=== PATIENT | female | born 1960 | race Caucasian/White ===

== ENCOUNTER → 2018-07-04 | Outpatient (CLI) | payer OTHER ==
[~2018-07-04] MED LIST: AMLO10 PO; HYDCHL25 PO; LISI20 PO; MECL25 PO; METF500 PO; METF500C PO; METO25ER PO; NORT10 PO; ONDA8 PO; PRAV10 PO; PRAV20 PO; SITA100T2 PO; VALS80 PO
== END ==
LOC: LAB SHORT 17:50 → LAB 17:50
DX: R19.7 Diarrhea, unspecified (principal)
CPT/HCPCS: 87015; 87045; 87046; 87205; 87899

== ENCOUNTER 2019-03-06 23:27 | Inpatient (IN) | payer OTHER ==
[~2019-03-06] VITALS: Ht 162.6 cm; Wt 111.1 kg
[2019-03-07 03:05] LABS: Blood, Urine 2+ (Neg); Glucose Qualitative, Urine 3+ (Neg); Ketones, Urine 1+ (Neg); Leukocyte Esterase, Urine 1+ (Neg); Nitrite, Urine Neg (Neg); Protein, Urine 1+ (Neg); Specific Gravity, Urine 1.015 (1.003-1.022); Urobilinogen, Urine 1+ (Normal)
[2019-03-07 03:05] LABS: BASOPHILS ABSOLUTE AUTO 0.03 K/mm3 (0.00-0.23); BASOPHILS PERCENT AUTO 0 % (0-2); EOSINOPHILS ABSOLUTE AUTO 0.01 K/mm3 (0.00-0.68); EOSINOPHILS PERCENT AUTO 0 % (0-6); Hematocrit 38.3 % (33.0-51.0); IMMATURE GRAN ABSOLUTE AUTO 0.05 K/mm3 (0.00-0.10); IMMATURE GRAN PERCENT AUTO 0 % (0-1); LYMPHOCYTES ABSOLUTE AUTO 0.97 K/mm3 (0.84-5.20); LYMPHOCYTES PERCENT AUTO 9 % (21-46); MONOCYTES ABSOLUTE AUTO 0.93 K/mm3 (0.16-1.47); MONOCYTES PERCENT AUTO 8 % (4-13); Mean Corpuscular HGB 29.5 pg (26.0-34.0); Mean Corpuscular HGB Conc 33.9 g/dL (31.5-36.5); Mean Corpuscular Volume 87 fL (80-100); Mean Platelet Volume 9.7 fL (9.1-12.4); NEUTROPHILS ABSOLUTE AUTO 9.23 K/mm3 (1.96-9.15); NEUTROPHILS PERCENT AUTO 82 % (41-73); Platelet Count 258 K/mm3 (150-400); RDW Coefficient Variation 12.9 % (11.7-14.2); RDW Standard Deviation 41.1 fL (35.1-46.3); Red Blood Cell Count 4.41 M/mm3 (3.80-5.20); White Blood Cell Count 11.22 K/mm3 (4.00-11.30)
[2019-03-07] MEDS ORDERED: SIMV10 PO (03:07)
[2019-03-07] MEDS ORDERED: QUET25 PO (03:07)
[2019-03-07] MEDS ORDERED: LOSA50 PO (03:08)
[2019-03-07] MEDS ORDERED: CHLO25B PO (03:09)
[2019-03-07 03:10] LABS: Appearance, Urine Hazy (Clear); Bilirubin, Urine 1+ (Neg); Color, Urine Yellow (P-Yellow)
[2019-03-07 03:11] LABS: Amorphous Light (0-Heavy); Bacteria Few /hpf; Mucus Light (0-Heavy); Red Blood Cells, Urine 0-2 /hpf (0-2); Squamous Epithelial Cells Few /hpf (Few)
[2019-03-07 03:12] LABS: Granular Casts 0-2 /lpf (0)
[2019-03-07 03:23] LABS: Albumin/Globulin Ratio 0.8 (0.8-1.8); Bilirubin, Total 0.5 mg/dL (0.1-1.0); Calcium, Blood 9.4 mg/dL (8.5-10.1); Creatinine, Blood 1.94 mg/dL (0.40-1.00); Globulin, Blood 3.6 g/dL (2.2-4.0); Total Protein, Blood 6.6 g/dL (6.4-8.2)
[2019-03-07 03:47] LABS: Magnesium, Blood 1.8 mg/dL (1.6-2.4); Troponin I 0.064 ng/mL (0.000-0.040)
[2019-03-07 09:37] LABS: U Amphetamine Screen Not Detected; U Barbituate Screen Not Detected; U Benzodiazapine Screen Not Detected; U Buprenorphine Screen Not Detected; U Cannabinoids Screen Not Detected; U Cocaine Screen Not Detected; U Methadone Screen Not Detected; U Methamphetamine Screen Not Detected; U Opiates Screen Not Detected; U Oxycodone Screen Not Detected; U Phencyclidine Screen Not Detected; U Propoxyphene Screen Not Detected
[2019-03-07] MEDS ORDERED: ASPI325EC PO (16:14)
[2019-03-07] MEDS ORDERED: METO25ER PO (16:14)
--- NOTE | 2019-03-07 16:18 | NUR ---
ADMIT REPORT RECEIVED FROM DALIA TURNER. PT ARRIVED VIA GURNEY ACCOMPANIED BY SPOUCE. PT MORE AWAKE AND ALERT. ASKING SIMPLE QUESTIONS. MAKING SIMPLE REQUESTS. VOICE WEAK AND QUIET. VSS. CALL LIGHT WITH IN REACH. FAMILY WENT HOME TO GET SOME REST. CONTINUE POT.
--- NOTE | 2019-03-07 18:29 | NUR ---
NOTE PT AWAKE AND ALERT. LIMITED ROM. NO ATTEMPT TO MOVE HERSELF. SHE IS HOLDING THE CALL LIGHT. PT EATING DINNER, PUREE, WITH EATING ASSIST. NO ATTEMPT TO FEED HERSELF. INCONTINET OF STOOL X1. DARK, BROWN. MILD ODOR. NO MUCIOUS. RENÉ AREA SKIN CD&I. ORANGE CREAM APPLIED TO RENÉ AREA FOR SKIN PROTECTION. CONTINUE POT.
[2019-03-08 00:43] LABS: Adenovirus F 40/41 Not Detected (NOT DETECT); Astrovirus Not Detected (NOT DETECT); Campylobacter Sp Not Detected (NOT DETECT); Cryptosporidium Not Detected (NOT DETECT); Cyclospora Cayetanensis Not Detected (NOT DETECT); E. Coli O157 Not Detected (NOT DETECT); Entamoeba Histolytica Not Detected (NOT DETECT); Enteroaggregative E. coli-EAEC Not Detected (NOT DETECT); Enteropathogenic E. coli-EPEC Not Detected (NOT DETECT); Enterotoxigenic E. coli-ETEC Not Detected (NOT DETECT); Giardia Lamblia Not Detected (NOT DETECT); Norovirus GI/GII Not Detected (NOT DETECT); Plesiomonas Shigelloides Not Detected (NOT DETECT); Rotavirus A Not Detected (NOT DETECT); Salmonella Sp Not Detected (NOT DETECT); Sapovirus Not Detected (NOT DETECT); Shiga Toxin-prod E. coli-STEC Not Detected (NOT DETECT); Shigella/Enteroin E. coli-EIEC Not Detected (NOT DETECT); Vibrio Cholerae Not Detected (NOT DETECT); Vibrio Sp Not Detected (NOT DETECT); Yersinia Enterocolitica Not Detected (NOT DETECT)
--- NOTE | 2019-03-08 01:17 | NUR ---
responds slowly to verbal stimulus, loose stool, aware of surroundings but not seeming to want to engage, call light in reach, saline locked, room air, will continue to assist, administer and assess
[2019-03-08 04:21] LABS: Hematocrit 36.2 % (33.0-51.0); Mean Corpuscular HGB 29.3 pg (26.0-34.0); Mean Corpuscular HGB Conc 33.1 g/dL (31.5-36.5); Mean Corpuscular Volume 89 fL (80-100); Platelet Count 207 K/mm3 (150-400); RDW Coefficient Variation 13.1 % (11.7-14.2); RDW Standard Deviation 42.1 fL (35.1-46.3); Red Blood Cell Count 4.09 M/mm3 (3.80-5.20); White Blood Cell Count 11.23 K/mm3 (4.00-11.30)
[2019-03-08 04:46] LABS: Alanine Aminotransfer (ALT/SGP 52 U/L (12-78); Albumin, Blood 2.3 g/dL (3.4-5.0); Albumin/Globulin Ratio 0.7 (0.8-1.8); Alk Phos 85 U/L (50-136); Anion Gap 8 mmol/L (6-16); Aspartate Aminotrans (AST/SGOT 101 U/L (12-37); Bilirubin, Total 0.5 mg/dL (0.1-1.0); Blood Urea Nitrogen 21 mg/dL (8-24); Bun/Creatinine Ratio 23.3 (12.0-20.0); CO2, Blood 24 mmol/L (21-32); Calcium, Blood 8.1 mg/dL (8.5-10.1); Chloride, Blood 108 mmol/L (98-108); Globulin, Blood 3.2 g/dL (2.2-4.0); Glomerular Filtration Rate >60 (60-); Glucose, Blood 142 mg/dL (70-99); Sodium, Blood 140 mmol/L (136-145); Total Protein, Blood 5.5 g/dL (6.4-8.2)
--- NOTE | 2019-03-08 07:18 | NUR ---
alert at base line, slow to respond, needed assistance with all adl's, call light in hand, saline locked, room air, walking rounds completed with day staff
--- NOTE | 2019-03-08 14:56 | NUR ---
Patient was lying in bed with , Uday, bedside. Patient only responded in one or two word sentences but slept through most of the visit. Uday, however was in a crisis of dalila. I spent quit a bit of time hearing his struggles and answering his questions according to his own belief system. Uday responded well and allowed me to pray for him. He displayed evidence of restored dalila and catharsis. Patient expressed gratitude for the visit.
--- NOTE | 2019-03-08 18:38 | NUR ---
SHIFT SUMMARY. A&OX1, SLOW TO RESPOND. PHYSICAL THERAPY WORKED WITH PT TODAY, PT IS A LIFT PT, UNABLE TO BARE OWN WEIGHT. ALL EXTREMITIES RIGID, FEET BEGINING TO DROP. PT SY NOT APPEAR PAINFUL, DENIED PAIN. NO SOB OR DISTRESS. NO N/V. GOOD PO INTAKE. AT BEDSIDE MOST OF THE SHIFT, REQUEST TO ASSIST WITH CARE OFTEN. APPEARS TO HAVE CAREGIVER STRAIN AND FATIGUE, HE WAS ENCOURAGED TO GO HOME TONIGHT AND GET A GOOD NIGHT SLEEP. PT RECIEVED NEW IV TODAY, STARTED ON MAINTENENCE FLUIDS AND PO VANCO TODAY. 6 INCONTINENT LOOSE BROWN BM'S THIS SHIFT. PT RECIEVED BED BATH THIS AM. PT HAS BEEN CONTINENT OF URINE.
--- NOTE | 2019-03-08 18:51 | NUR ---
LATE ENRTY. PT IS NOW MEDICAL FLOOR STATUS WITHOUT TELE.
--- NOTE | 2019-03-08 19:46 | NUR ---
AWAKE FRANTZ SPOKEN TO TRIES TO SAY NAME OF STAFF AND UNABLE. SAYS HER NAME AND DATE OF . CONJUGATE EYE MOVEMENT AND EYE TRACKING WNL. PER COMMAND. HAND SQUEEZE TO COMMAND. UNABLE TO LIFT ARMS. WEAK BUT FOLLOWS COMMAND WITH LOWER EXT NEURO CHECK. REID 2/2..BENDS BOTH KNEES REQUEST. VERY LETHARGIC AND SPEAKS SOFTLY. REPORTS SOME PAIN IN NECK AND SHOULDERS. WILL TRY REPOSITION.
[2019-03-09 04:13] LABS: BASOPHILS ABSOLUTE AUTO 0.04 K/mm3 (0.00-0.23); BASOPHILS PERCENT AUTO 0 % (0-2); EOSINOPHILS ABSOLUTE AUTO 0.07 K/mm3 (0.00-0.68); EOSINOPHILS PERCENT AUTO 1 % (0-6); Hematocrit 35.8 % (33.0-51.0); Hemoglobin 11.9 g/dL (11.5-16.0); IMMATURE GRAN ABSOLUTE AUTO 0.13 K/mm3 (0.00-0.10); IMMATURE GRAN PERCENT AUTO 1 % (0-1); LYMPHOCYTES ABSOLUTE AUTO 1.21 K/mm3 (0.84-5.20); LYMPHOCYTES PERCENT AUTO 10 % (21-46); MONOCYTES ABSOLUTE AUTO 0.65 K/mm3 (0.16-1.47); MONOCYTES PERCENT AUTO 5 % (4-13); Mean Corpuscular HGB 29.5 pg (26.0-34.0); Mean Corpuscular HGB Conc 33.2 g/dL (31.5-36.5); Mean Corpuscular Volume 89 fL (80-100); Mean Platelet Volume 9.8 fL (9.1-12.4); NEUTROPHILS PERCENT AUTO 83 % (41-73); Platelet Count 237 K/mm3 (150-400); RDW Standard Deviation 41.8 fL (35.1-46.3); Red Blood Cell Count 4.04 M/mm3 (3.80-5.20)
[2019-03-09 04:32] LABS: Albumin, Blood 2.4 g/dL (3.4-5.0); Anion Gap 6 mmol/L (6-16); Blood Urea Nitrogen 13 mg/dL (8-24); Bun/Creatinine Ratio 15.2 (12.0-20.0); CO2, Blood 26 mmol/L (21-32); Calcium, Blood 8.1 mg/dL (8.5-10.1); Chloride, Blood 106 mmol/L (98-108); Creatinine, Blood 0.85 mg/dL (0.40-1.00); Glomerular Filtration Rate >60 (60-); Glucose, Blood 206 mg/dL (70-99); Magnesium, Blood 1.7 mg/dL (1.6-2.4); Potassium, Blood 3.3 mmol/L (3.5-5.5); Sodium, Blood 138 mmol/L (136-145)
--- NOTE | 2019-03-09 05:18 | NUR ---
SHIFT SUMMARY. FEW WORDS TO VOICE NEEDS SLOW AND WHISPERS. ASKED FOR BED GALICIA AND KNEW WHEN ATTENDS SOILED. DID NOT KNOW HOW TO USE CALL LITE BUT STAFF FREQ CHECKS ACCOMPLISHES ALL NEEDS QUICKLY. ONLY TOUCHES FACE W/ HANDS BUT VERY LITTLE SPONTANIOUS DESIRE TO MOVE . NO ACUTE ISSUES AND AGREED TO STAFF FEEDING HER ONE PUDDING . TAKES PILLS WELL AND SIPS ON H2O W/ ASPIRATION PRECAUTIONS.RENÉ AREA W/O SKIN BREAKDOWN UNGT APPLIED FOR PROTECTION
--- NOTE | 2019-03-09 10:08 | NUR ---
pt laying in bed, spouce at bedside, she is awake, speaks to spouce, slowly asnswers some questions. a/o to herself, and place, lungs are clear t/o, resp even and unlabored, no cough noted, hrr, attempts to cooperate and follow commands, but is very slow. no edema noted, ppp+1, cap refill <3sec, vs stable, afebrile, iv site is clear and patent, but feels like it is burning, have asked charge nurse to place another line as there is no visible veins, btx4, abd flat soft nontender, incont and uses the bed denny at times. spouce is helpful with care, she is bedrest at this time, very weak, in contact iso for cdiff, takes her po meds without diff, and a puree diet.
--- NOTE | 2019-03-09 11:02 | NUR ---
called Dr. Gibson office to request medical records, office was not answering at this time, did leave a msg with fax number for them to fax medical records. she will be transfered to medical floor at this time, report was given to Hailey TURNER. pt will transfer via bed, informed her and spouce.
--- NOTE | 2019-03-09 13:13 | NUR ---
HANDOFF RECEIVED HANDOFF REPORT RECEIVED FROM NURSE BRENDA GUTIERREZ IN PCU. PT IN ISO FOR CDIFF. PT S/SX: UNRESPONSIVE. FAMILY STATED THAT SHE IS OFTEN UNRESPONSIVE. PT ON PUREE DIET. SHE IS PLEASANTLY CONFUSED W/ A HISTORY OF LEWY BODY DEMENTIA, DM 2, HTN, NEUROPATHY. SHE IS BEDRIDDEN WITH ATTENDS. DNR CODE. ROOM AIR. A&O TO SELF AND SPOUSE ONLY
--- NOTE | 2019-03-09 18:20 | NUR ---
SHIFT SUMMARY 58 YEAR OLD FEMALE ADMITTED FOR UNRESPONSIVENESS. DNR. IN CONTACT PRECAUTIONS FOR CDIFF. BEDRIDDEN - NEW ONSET (COULD HELP TRANSFER SELF TO WHEELCHAIR AT HOME), USES ATTENDS/BEDPAN. ROOM AIR. A&O TO SELF AND SPOUSE ONLY. HER DIET IS MECH/SOFT GROUND MEAT. ACHS W/INSULIN COVERAGE. EXTREMETIES ARE STIFF. SHE IS PLEASANTLY CONFUSED. HX:LEWY BODY DEMENTIA, DM 2, HTN, NEUROPATHY. REQUESTED PT RECORDS FROM NEUROLOGIST DR. PRATT IN [place]. RECORDS FAXED AND IN FRONT OF CHART. LOVENOX FOR DVT PREVENTION. TRANSFERED TO MED FLOOR FROM PCU TODAY.
--- NOTE | 2019-03-10 04:01 | NUR ---
SHIFT SUMMARY PATIENT HAD NO ACUTE CHANGES OBSERVED THIS SHIFT. SLOW TO RESPOND. AXO TO SELF/SPOUSE. BEDFAST. REFUSED MOST PO MEDICATION. ORAL VANCO GIVEN PER EMAR. CONTACT PRECAUTIONS. CBG 151;AC/HS. HX LEWY BODY DEMENTIA. PIV REMAINS INTACT. KCL 20 MEQ INFUSING AT 75mL/HR. VSS/AFEBRILE. DENIES PAIN, SOB, AND N/V. CALL LIGHT IN REACH. BED IN LOWEST POSITION. WILL CONTINUE TO MONITOR UNTIL DAY SHIFT NURSE ASSUMES CARE.
[2019-03-10 06:04] LABS: Alanine Aminotransfer (ALT/SGP 53 U/L (12-78); Albumin, Blood 2.3 g/dL (3.4-5.0); Albumin/Globulin Ratio 0.7 (0.8-1.8); Alk Phos 96 U/L (50-136); Anion Gap 10 mmol/L (6-16); Aspartate Aminotrans (AST/SGOT 54 U/L (12-37); Bilirubin, Direct 0.1 mg/dL (0.0-0.3); Bilirubin, Indirect 0.4 mg/dL (0.1-0.7); Bilirubin, Total 0.5 mg/dL (0.1-1.0); Blood Urea Nitrogen 8 mg/dL (8-24); Bun/Creatinine Ratio 11.5 (12.0-20.0); CO2, Blood 23 mmol/L (21-32); Calcium, Blood 8.1 mg/dL (8.5-10.1); Chloride, Blood 103 mmol/L (98-108); Creatinine, Blood 0.69 mg/dL (0.40-1.00); Globulin, Blood 3.5 g/dL (2.2-4.0); Glomerular Filtration Rate >60 (60-); Glucose, Blood 164 mg/dL (70-99); Phosphorus, Blood 2.2 mg/dL (2.5-4.9); Potassium, Blood 3.3 mmol/L (3.5-5.5); Sodium, Blood 136 mmol/L (136-145); Total Protein, Blood 5.8 g/dL (6.4-8.2)
--- NOTE | 2019-03-10 17:32 | NUR ---
SHIFT SUMMARY- PT SLEEPY BUT AWAKES TO VERBAL STIMULI, MINIMAL VERBALIZATION TO STAFF BUT DOES TALK WITH SPOUSE. PT DENIES ANY COMPLAINTS. PT UP TO CHAIR WITH PHYSICAL THERAPY, SPOUSE ASSISTED BACK INTO BED WITH RN STUDENT ON STAND BY, SPOUSE REPORTS HE IS UNSURE HOW HE WILL DO THIS AT HOME AND STATES HE WONT TRY IT AGAIN, PT IS RECOMMENDED BY THERAPY TO BE A LIFT. PT A HEAVY 2-3 PERSON TURN. PT INCONT OF URINE AND STOOL, 1 LOOSE STOOL THIS SHIFT. POSS D/C HOME TOMORROW WITH SPOUSE. NO OTHER ACUTE CHANGES THIS SHIFT.
--- NOTE | 2019-03-10 18:25 | NUR ---
SHIFT SUMMARY PT IS ON ISOLATION WITH C-DIFF. PT HAD TWO BOWEL MOVMENTS. PT MOVED TO CHAIR WITH PHYSICAL THERAPY, SHE REMAINED IN THE CHAIR FOR ABOUT 30 MINUTES. I ASSISTED THE TO MOVE THE PATIENT BACK TO BED. SHE HAS A DIFFICULT TIME TRANSFERING AND WE PLAN TO MOVE HER TO A ROOM WITH A LIFT. SHE NEEDS ASSISTANCE EATING AND ATE ALMOST ALL OF HER MEALS. SHE STATED THAT THE IV SITE WAS UNCOMFORTABLE, ENCOURAGED ORAL INTAKE OF FLUIDS. SHE HAS DIFFICULTY PRESSING THE CALL LIGHT AND IS VERY QUIET WHEN SPEAKING, AND WAS ANXIOUS ABOUT HER LEAVING FOR THE DAY. HER IS HER PRIMARY SHELTER MONITOR AND WAS AT BEDSIDE MOST OF THE DAY.
--- NOTE | 2019-03-10 18:33 | NUR ---
Initial Visit: Palliative Care Consult for Advanced Care Planning and Symptom Management. Pt is A&O to self and . She is lethargic and keeps her eyes closed for much of the visit. Pt appears comfortable with a PAINAD score of 0/10. Pt's Uday and Pt's brother is present during visit. Engaged in therapeutic conversaton regarding advanced care planning and goals of care. Uday reports that Pt does not practice a particular denomination and states they have a personal relationship with Can and God. Pt lives at home with Uday who is the primary complex care nurse practitioner for Pt. Pt's brother lives with them as well. Brother works and is unable to assist with care but does help by running errands and shopping. Uday explains the difficulty of caring for Pt and the decline the Pt has experienced recently. Uday reports that he has difficulty repositioning Pt when turning her routinely. He is currently receiving disability benefits. Listened as Uday expressed concerns of Pt needing around the clock care and little sleep he gets. Pt requires considerable assistance with dressing, bathing, is a mechanical lift for transfers and is not able to ambulate. Pt is also currently incontinent. Uday also reports Pt requires 2 people to roll to provide care. Uday reports Pt experiences occasional difficulty swallowing as evidence by occasional coughing when drinking. Uday reports 2 weeks ago Pt was able to stand and ambulate with the use of a walker and assistance of another person. Pt was also continent. Discussed options for care including in home caregivers and nursing homes. Uday reports that he is willing to start the medicaid process and prefers in home caregivers. Educated Uday of disease process and trajectory of disease. Encouraged Uday to have routine conversations regarding Pt's disease with PCP to plan accordingly. Discussed with Uday that at some point end of life care may need to be considered including hospice services. Uday verbalized understanding. No other concerns reported at this time. Spoke with Pt's nurse Rudy and she expresses concerns of ability of Pt's to care for Pt. Scores below are based off Pt's current condition and are not her baseline. PPS 30% Karnofsky 40% FAST 7D ADLs 6/6 Pt appears appropriate for hospice if decline continues. Plan: Pt's is agreeable to start medicaid process to obtain in home caregivers. Will remain available.
--- NOTE | 2019-03-11 05:31 | NUR ---
*SHIFT SUMMARY* PATIENT IS ALERT AND ORIENTED TO SELF AND FAMILY. PT IS A HEAVY TWO ASSIST TURN AND LIFT TO GET OUT OF BED. PATIENT HAD ONE BOWEL MOVEMENT THROUGHOUT THE NIGHT. PT'S IV WAS NOTED TO BE INFILTRATED. NEW ORDER FOR NO IV ACCESS NEEDED. PATIENT VERBALLY STATED NUMEROUS TIMES SHE DID NOT WANT ANOTHER IV PLACED. TELEPHONE ORDER RECIEVED TO CHANGE IV POTASSIUM TO ORAL. VITALS STABLE. NO NEW CHANGES THROUGHOUT NIGHT.
[2019-03-11 09:06] LABS: Albumin, Blood 2.2 g/dL (3.4-5.0); Anion Gap 6 mmol/L (6-16); Blood Urea Nitrogen 7 mg/dL (8-24); Bun/Creatinine Ratio 10.5 (12.0-20.0); CO2, Blood 27 mmol/L (21-32); Chloride, Blood 103 mmol/L (98-108); Creatinine, Blood 0.67 mg/dL (0.40-1.00); Glomerular Filtration Rate >60 (60-); Glucose, Blood 168 mg/dL (70-99); Phosphorus, Blood 2.7 mg/dL (2.5-4.9); Potassium, Blood 3.8 mmol/L (3.5-5.5); Sodium, Blood 136 mmol/L (136-145)
--- NOTE | 2019-03-11 17:47 | NUR ---
SHIFT SUMMARY- PT A/O TO SELF AND FAMILY ONLY. PT MEDICATED X1 WITH IBUPROFEN FOR NECK PAIN. PT WITH TWO STOOLS THIS SHIFT. PHYSICAL THERAPY ATTEMPTED TO TRANSFER PT INTO CHAIR HOWEVER PT PULLING BACK AND UNABLE TO TRANSFER, LIFT RECOMMENDED. CASE MANAGEMENT WORKING ON GETTING PT A LIFT AND HOSPITAL BED AT HOME. POSS D/C TOMORROW. SPOUSE REPORTS HE IS GOING TO START WORKING ON GETTING PT PLACED AT [facility] IN [place] FOR INTERNET MARKETING ASSISTANT PLACEMENT. NO OTHER ACUTE CHANGES THIS SHIFT.
--- NOTE | 2019-03-12 06:01 | NUR ---
*SHIFT SUMMARY* PATIENT APPEARS MORE AWAKE TODAY. USING CALL LIGHT APPROPRIATELY FOR THINGS LIKE WATER, BEING TURNED, AND USING BEDPAN. PT MOSTLY INCONTINENT THROUGHOUT THE NIGHT. PT ASKED SEVERAL TIMES WHERE HER WAS. VITAL SIGNS STABLE. NO OTHER CHANGES
[2019-03-12] MEDS ORDERED: Advil200 M1 PO (09:13)
[2019-03-12] MEDS ORDERED: SACC250C (09:14)
[2019-03-12] MEDS ORDERED: VANCOMYCIN125 MG/2.5 (09:18)
--- NOTE | 2019-03-12 10:49 | NUR ---
SPOUSE EDUCATION PT SPOUSE SHOWN HOW TO COMPLETE A BED BATH & LINEN CHANGE. PROPER BREIF APPLICATION EXPLAINED TO THE SPOUSE WELL.
--- NOTE | 2019-03-12 12:59 | NUR ---
PT DISCHARGED PT DISCAHRGED. PT IN STABLE CONDITION WITH VSS. PT SPOUSE EDUCATED ON DC INSTRUCTIONS, NEW MEDS, & FOLLOW UP APPOINTMENTS. PT SPOUSE STATES NO FURTHER NEED FOR INSTRUCTION. PT WHEELED OUT & DRIVEN HOME BY [facility]. PT TO FOLLOW UP WITH HOME HEALTH.
== END 2019-03-12 12:49 | disposition home health service (06) | DRG 371 ==
LOC: ER 23:27 → PCU 03-07 05:12 → ERHOLD 03-07 05:12 → PCU 03-07 14:07 → MEDS 03-09 11:33 → ENPENDDIS 03-12 09:23 → MEDS 03-12 12:49
PROVIDERS: Emergency Medicine; Internal Medicine; ADMIT Internal Medicine
DX: A04.72 Enterocolitis due to Clostridium difficile, not specified as recurrent (principal); G92 Toxic encephalopathy; N17.9 Acute kidney failure, unspecified; F02.81 Dementia in other diseases classified elsewhere, unspecified severity, with behavioral disturbance; Z68.41 Body mass index [BMI] 40.0-44.9, adult; E87.6 Hypokalemia; E86.0 Dehydration; E83.39 Other disorders of phosphorus metabolism; Z51.5 Encounter for palliative care; E11.40 Type 2 diabetes mellitus with diabetic neuropathy, unspecified; E78.5 Hyperlipidemia, unspecified; G20 Parkinson's disease; G31.83 Neurocognitive disorder with Lewy bodies; G47.00 Insomnia, unspecified; E66.01 Morbid (severe) obesity due to excess calories; T43.595A Adverse effect of other antipsychotics and neuroleptics, initial encounter; E11.65 Type 2 diabetes mellitus with hyperglycemia; I10 Essential (primary) hypertension
CPT/HCPCS: 36415; 51701; 70450; 71045; 80053; 80069; 81001; 82140; 82248; 82947; 83036; 83605; 83735; 84100; 84484; 85025; 85027; 87040; 87086; 87324; 87507; 92526; 92610; 93005; 93010; 96361-59; 96365-59; 96367-59; 96372-59; 97110; 97162; 97530; 99285-25; A9270-GY; J0696; J1650; J3480; J7030; J7060

== ENCOUNTER 2019-04-11 22:06 | Inpatient (IN) | payer OTHER ==
[~2019-04-11] VITALS: Ht 167.6 cm; Wt 104.8 kg
[~2019-04-11 22:06] MED LIST changes: +ASPI325EC PO; +Advil200 M1 PO; +CHLO25B PO; +LOSA50 PO; +QUET25 PO; +SACC250C; +SIMV10 PO; +VANCOMYCIN125 MG/2.5
[2019-04-11 22:18] LABS: PCO2 Arterial 29.2 mmHg (35-45); PO2 Arterial 81.3 mmHg (80-100); pH Blood Arterial 7.49 (7.35-7.45)
[2019-04-11 22:26] LABS: Source, Urine Catheter
[2019-04-11 22:28] LABS: BASOPHILS ABSOLUTE AUTO 0.08 K/mm3 (0.00-0.23); BASOPHILS PERCENT AUTO 0 % (0-2); EOSINOPHILS PERCENT AUTO 0 % (0-6); Hematocrit 37.6 % (33.0-51.0); IMMATURE GRAN ABSOLUTE AUTO 0.13 K/mm3 (0.00-0.10); IMMATURE GRAN PERCENT AUTO 1 % (0-1); LYMPHOCYTES ABSOLUTE AUTO 0.91 K/mm3 (0.84-5.20); LYMPHOCYTES PERCENT AUTO 5 % (21-46); MONOCYTES ABSOLUTE AUTO 1.91 K/mm3 (0.16-1.47); MONOCYTES PERCENT AUTO 10 % (4-13); Mean Corpuscular HGB 29.8 pg (26.0-34.0); Mean Corpuscular HGB Conc 31.9 g/dL (31.5-36.5); Mean Corpuscular Volume 93 fL (80-100); Mean Platelet Volume 10.4 fL (9.1-12.4); NEUTROPHILS ABSOLUTE AUTO 16.84 K/mm3 (1.96-9.15); NEUTROPHILS PERCENT AUTO 85 % (41-73); Platelet Count 262 K/mm3 (150-400); RDW Coefficient Variation 13.5 % (11.7-14.2); RDW Standard Deviation 46.2 fL (35.1-46.3); Red Blood Cell Count 4.03 M/mm3 (3.80-5.20); White Blood Cell Count 19.87 K/mm3 (4.00-11.30)
[2019-04-11 22:29] LABS: Blood, Urine 2+ (Neg); Glucose Qualitative, Urine Neg (Neg); Ketones, Urine 1+ (Neg); Leukocyte Esterase, Urine 2+ (Neg); Nitrite, Urine Pos (Neg); Protein, Urine 1+ (Neg); Urobilinogen, Urine 1+ (Normal)
[2019-04-11 22:34] LABS: Appearance, Urine Hazy (Clear); Bilirubin, Urine 1+ (Neg); Color, Urine Yellow (P-Yellow)
[2019-04-11 22:37] LABS: White Blood Cells, Urine 25-50 /hpf (0-5)
[2019-04-11 22:38] LABS: Bacteria Many /hpf; Red Blood Cells, Urine 0-2 /hpf (0-2); Squamous Epithelial Cells Not Seen /hpf (Few)
[2019-04-11 22:52] LABS: Albumin, Blood 2.4 g/dL (3.4-5.0); Albumin/Globulin Ratio 0.6 (0.8-1.8); Bilirubin, Total 0.8 mg/dL (0.1-1.0); Calcium, Blood 8.5 mg/dL (8.5-10.1); Creatinine, Blood 1.7 mg/dL (0.40-1.00); Globulin, Blood 3.8 g/dL (2.2-4.0); Potassium, Blood 3.4 mmol/L (3.5-5.5); Total Protein, Blood 6.2 g/dL (6.4-8.2)
[2019-04-11 22:53] LABS: Troponin I 0.03 ng/mL (0.000-0.040)
[2019-04-11 23:44] LABS: C DIFFICILE BY DNA AMP Positive (Negative)
--- NOTE | 2019-04-12 02:00 | NUR ---
RECEIVED HAND OFF FROM Korey SWANSON RN USING SBAR. TRANSPORTED TO ROOM VIA STRETCHER. TRANSFERED TO BED WITH FULL STAFF ASSISTANCE, TOLERATED WELL. A&O TO SELF AND SPOUSE ONLY. ABLE TO ANSWER SIMPLE QUESTIONS WITH ONE WORD ANSWERS. ORIENTED TO ROOM, CALL SYSTEM, AND POC, SPOUSE VERBALIZES UNDERSTANDING. NURSING CLARIFIED WITH SPOUSE REGUARGING PT'S WISHES FOR DNR STATUS. HE STATED THAT THEY WOULD WANT NO CHEST COMPRESSIONSOR INTUBATION. HE STATED THAT THEY DID WANT ANTIBIOTIC AND HYDRATION THERAPY. IF SWALLOWING BECAME AN ISSUE, HE STATED THAT THEY WOULD LIKE TO HAVE A PEG TUBE LONG HER ORGANS WERE STILL FUNCTIONING. RIGHT WRIST 20G PIV IS PATENT, NS STARTED AT 200ML/HR PER MD ORDERS FOR 2 LTRS. BUSTOS CATH IS PATENT, DRAINING CLOUDY RONN URINE TO GRAVITY. SCD'S PLACED TO BLE. ADMISSION ASSESSMENT IN PROGRESS. SAFETY MEASURES IN PLACE. WILL CONTINUE TO MONITOR.
[2019-04-12] MEDS ORDERED: Vancocin HCl125 MG PO (03:05)
[2019-04-12 04:08] LABS: Bun/Creatinine Ratio 25.2 (12.0-20.0); Calcium, Blood 8.1 mg/dL (8.5-10.1); Creatinine, Blood 1.31 mg/dL (0.40-1.00); Potassium, Blood 3.7 mmol/L (3.5-5.5)
--- NOTE | 2019-04-12 04:15 | NUR ---
1 DARK BROWN BM CLEANED. REPOSITIONED TO COMFORT. DENIES FURTHER NEEDS AT THIS TIME. SAFETY MEASURES IN PLACE. WILL CONITINUE TO MONITOR.
[2019-04-12 06:16] LABS: BASOPHILS ABSOLUTE AUTO 0.05 K/mm3 (0.00-0.23); BASOPHILS PERCENT AUTO 0 % (0-2); EOSINOPHILS PERCENT AUTO 0 % (0-6); Hemoglobin 12.3 g/dL (11.5-16.0); IMMATURE GRAN ABSOLUTE AUTO 0.16 K/mm3 (0.00-0.10); IMMATURE GRAN PERCENT AUTO 1 % (0-1); LYMPHOCYTES ABSOLUTE AUTO 0.57 K/mm3 (0.84-5.20); LYMPHOCYTES PERCENT AUTO 3 % (21-46); MONOCYTES ABSOLUTE AUTO 1.44 K/mm3 (0.16-1.47); MONOCYTES PERCENT AUTO 7 % (4-13); Mean Corpuscular HGB 29.1 pg (26.0-34.0); Mean Corpuscular HGB Conc 33.2 g/dL (31.5-36.5); Mean Platelet Volume 10.4 fL (9.1-12.4); NEUTROPHILS ABSOLUTE AUTO 18.28 K/mm3 (1.96-9.15); NEUTROPHILS PERCENT AUTO 89 % (41-73); Platelet Count 261 K/mm3 (150-400); RDW Coefficient Variation 13.4 % (11.7-14.2); RDW Standard Deviation 42.9 fL (35.1-46.3); Red Blood Cell Count 4.23 M/mm3 (3.80-5.20)
[2019-04-12 06:17] LABS: Mean Corpuscular Volume 88 fL (80-100)
--- NOTE | 2019-04-12 12:05 | NUR ---
RECEIVED REPORT AND ASSUMED CARE OF PATIENT. CAIO AT BEDSIDE. PT RESPONSE TO VERBAL STIMULI WHEN THIS NURSE GETS CLOSE TO PATIENT TO SAY "GOOD MORNING HOLDEN." SHE EVENTUALLY RESPONDS, "GOOD MORNING." PT DOES NOT OPEN EYES OR MOVE, NO OTHER EVENTS OR ACTIVITY NOTED. TURNING PATIENT Q2. BED BATH GIVEN. CAIO MEETING WITH PALLATIVE CARE NURSE HUEY TO DISCUSS HOSPICE. TRANSFER ORDER TO MEDICAL FLOOR 342. GAVE REPORT TO RN AND WILL SEND PATIENT WHEN PALLATIVE CARE VISIT COMPLETED.
--- NOTE | 2019-04-12 17:29 | NUR ---
Initial palliative care consult: Laurie is a 58 year old with a history of lewy body dementia that was diagnosed about 1 year ago. She also has DM, HTN and morbid obesity. Laurie slept through the visit while this telegraphic typewriter mechanic spoke with her , Uday. Uday reports that about a year ago she was diagnosed and she has had a rapid decline in function since that time. She was driving a year ago. Now she is incontinent, bed bound, although Uday reports he picks her up and puts her in her chair daily. He reports this is difficult and he has hurt himself moving her. She is dependent on him for all ADLs. He reports that she took care of all the driving, shopping, bill paying and now he has had to assume the responsibilty for this functions. He is overwhelmed and feels that he needs help to care for her. They bought their home 3 years ago and Laurie's brother who works multimedia educational specialist lives with them. Uday states he is unsure of what he will do when she dies, he is fearful of the future. He reports that she has been his whole world for the past 18 years and he cannot imagine his life without her in it. She was hospitalized about one month ago. Since that admit she has lost 14 pounds. He reports that he has to feed her, but she has started to refuse food and fluids at home. She is incontinent and has diarrhea. She had c-diff recently and had treatment for it and now the diarrhea has returned. He is interested in hospice services as he states that her PCP has suggested hospice as an option. Explained hospice services. He states he would like to have Laurie receive treatment for her current infection but would like to arrange for hospice services when she is discharged. Emotional support given. He reports he is overwhelmed and hasn't been sleeping. Olivia Kapoor CM, updated on his wishes to pursue hospice services. He was given information and hospice company options, he said he would like to take some time to consider which agency he would like to use. Spoke with Dr. Angel and rec'd an order for a hospice referral. Talked to Uday about grief and getting some caregiver support. He states he spoke with a loft worker head the other day that was helpful. Offered to have loft worker head return and he declined at this time. Encouraged him to ask to see loft worker head when he is ready. He will need much support as Laurie continues to decline. Uday also requested to have extra help in the home. Updated CM that pt's would like information on community resources that are available. Uday states he has been in contact with [facility] for assistance in hospice and extra help from Laurie's PCP. PC will continue to assist with care planning and symptom management. Uday will continue to need much support and will encourage loft worker head involvement. Uday states he has dalila and he also states that Laurie also has dalila and sees visions. Emotional support provided. KPS = 40 PPS = 30 FAST - 7C PPI = 4 wt loss of 14 pounds in 1 month and albumin of 2.4.
--- NOTE | 2019-04-12 18:42 | NUR ---
SHIFT SUMMARY HOLDEN ARRIVED AROUND 130 FROM PCU. BUSTOS INTACT AND DRAINING. NO BM SINCE ARRIVAL. PT OPENS EYES AND TOOK IN SMALL AMT WATER FROM . CBGS HIGH REQUIRING INSULIN BUT DECLINED DINNER TIME INSULIN, PT NOT EATING AND CBG BELOW 200. AT BEDSIDE FOR MOST OF SHIFT. VERY [place]. Q2 TURN PERFORMED, BOTTOM SKIN INTACT. WEANED TO ROOM AIR. ABLE TO SWALLOW PO VANCO IF AWAKENED FULLY AND UPRIGHT. NO NON VERBAL SIGNS OF PAIN. ADVANCE DIET TOLERATED. SOME COUGHING AFTER WATER, REQUEST SPEECH EVAL TOMORROW. CALL LIGHT IN REACH, [facility]
--- NOTE | 2019-04-13 09:38 | NUR ---
PATIENT DID NOT EAT BRAKFAST THIS SHIF DUE TO BEING NPO AT THIS TIME.
--- NOTE | 2019-04-13 18:49 | NUR ---
SHIFT SUMMARY PT HAS HAD MULTIPLE LOOSE STOOLS THIS SHIFT. PT IS NONVERBAL AND DOES NOT TRACK WITH EYES. PT DOES NOT ALWAYS SWALLOW ON COMMAND SO UNABLE TO GIVE MEDICATION THIS EVENING DUE TO ASPIRATION RISK. PT DID EAT SOME OF HER LUNCH THIS SHIFT. IVF INFUSING PER MD ORDERS. NO ACUTE CHANGES AT THIS TIME. CALL LIGHT IN REACH. WILL CONTINUE TO MONITOR AND REPORT TO ONCOMING RN.
[2019-04-14 05:43] LABS: Hematocrit 39.1 % (33.0-51.0); LYMPHOCYTES ABSOLUTE AUTO 1.07 K/mm3 (0.84-5.20); LYMPHOCYTES PERCENT AUTO 3 % (21-46); MONOCYTES PERCENT AUTO 6 % (4-13); Mean Corpuscular HGB 29.1 pg (26.0-34.0); Mean Corpuscular HGB Conc 33.2 g/dL (31.5-36.5); Mean Corpuscular Volume 88 fL (80-100); Mean Platelet Volume 10.9 fL (9.1-12.4); Platelet Count 353 K/mm3 (150-400); RDW Coefficient Variation 13.9 % (11.7-14.2); RDW Standard Deviation 44.9 fL (35.1-46.3); Red Blood Cell Count 4.47 M/mm3 (3.80-5.20); White Blood Cell Count 37.35 K/mm3 (4.00-11.30)
[2019-04-14 05:44] LABS: BASOPHILS ABSOLUTE AUTO 0.01 K/mm3 (0.00-0.23); BASOPHILS PERCENT AUTO 0 % (0-2); EOSINOPHILS ABSOLUTE AUTO 0.01 K/mm3 (0.00-0.68); EOSINOPHILS PERCENT AUTO 0 % (0-6); IMMATURE GRAN ABSOLUTE AUTO 0.98 K/mm3 (0.00-0.10); IMMATURE GRAN PERCENT AUTO 3 % (0-1); NEUTROPHILS ABSOLUTE AUTO 33.08 K/mm3 (1.96-9.15); NEUTROPHILS PERCENT AUTO 89 % (41-73)
[2019-04-14 05:53] LABS: Albumin, Blood 1.7 g/dL (3.4-5.0); Anion Gap 13 mmol/L (6-16); Blood Urea Nitrogen 64 mg/dL (8-24); CO2, Blood 19 mmol/L (21-32); Calcium, Blood 8.2 mg/dL (8.5-10.1); Chloride, Blood 106 mmol/L (98-108); Creatinine, Blood 2.56 mg/dL (0.40-1.00); Glomerular Filtration Rate 20 (60-); Glucose, Blood 282 mg/dL (70-99); Magnesium, Blood 2.2 mg/dL (1.6-2.4); Phosphorus, Blood 2.6 mg/dL (2.5-4.9); Potassium, Blood 3.7 mmol/L (3.5-5.5); Sodium, Blood 138 mmol/L (136-145)
--- NOTE | 2019-04-14 09:42 | NUR ---
PATIENT DID NOT EAT BREAKFAST THIS SHIFT DUE TO BEING NOT AWAKE ENOUGH.
--- NOTE | 2019-04-14 12:38 | NUR ---
PATIENT DID NOT EAT LUNCH THIS SHIFT DUE TO NOT BEING AWAKE ENOUGH AT THIS TIME.
[2019-04-14 17:54] LABS: Albumin, Blood 1.5 g/dL (3.4-5.0); Anion Gap 11 mmol/L (6-16); Blood Urea Nitrogen 70 mg/dL (8-24); Bun/Creatinine Ratio 30.2 (12.0-20.0); CO2, Blood 18 mmol/L (21-32); Calcium, Blood 7.8 mg/dL (8.5-10.1); Chloride, Blood 110 mmol/L (98-108); Creatinine, Blood 2.32 mg/dL (0.40-1.00); Glomerular Filtration Rate 23 (60-); Glucose, Blood 224 mg/dL (70-99); Phosphorus, Blood 2.9 mg/dL (2.5-4.9); Potassium, Blood 3.7 mmol/L (3.5-5.5); Sodium, Blood 139 mmol/L (136-145)
--- NOTE | 2019-04-14 17:55 | NUR ---
PATIENT DID NOT EAT DINNER THIS SHIFT DUE TO NOT BEING AWAKE ENOUGH. RN NOTIFIED.
--- NOTE | 2019-04-14 18:41 | NUR ---
SHIFT SUMMARY PT HAS BEEN SLEEPING MOST OF THE SHIFT. PT NONVERBAL AND HAS BEEN UNABLE TO TAKE HER ORAL VANCOMYCIN THIS EVENING DUE TO ASPIRATION RISK. IVF INFUSING WITHOUT DIFFICULTY. PT RECEIVED 2 LITER BOLUS THIS SHIFT. NEW POWERGLIDE PLACED TO LEFT UPPER ARM AND INFUSING [place]U DIFFICULTY. NO ACUTE CHANGES THIS SHIFT. PT CONTINUES TO HAVE LOOSE STOOL. WILL REPORT TO ONCOMING RN.
--- NOTE | 2019-04-15 04:49 | NUR ---
LATE ENTRY PHYSICIAN CORRESPONDENCE 2200 PATIENT HAS BEEN NPO UNTI SHE BECOMES MORE AWAKE; HAS NOT HAD ANY REAL PO INTAKE SINCE ARRIVAL TO HOSPITAL. PATIENT VERY LETHARGIC. PHYSICIAN STATES TO GIVE INSULIIN AND NOT HOLD. NO OTHER ORDERS.
--- NOTE | 2019-04-15 05:11 | NUR ---
SHIFT SUMMARY RESPONDS TO VERBAL STIMULI; WILL LOOK TOWARD THE DIRECTION OF THE VOICE. TRIED TO FORM ONE WORD ANSWERS TO SIMPLE QUESTIONS. APPEARS MORE AWARE AT LATTER PART OF SHIFT. IV INFUSING NS /c 20K @ 150 ML/HR TO POWERGLIDE WITHOUT COMPLICATION. REPOSITIONING T/O SHIFT; ORAL CARE PREFORMED AFTER EACH REPOSITION. LOOSE STOOL BECOMING THICKER; LESS FREQUENT. VSS; HR ELEVATED. NO OTHER ACUTE CHANGES OVERNIGHT. BED IN LOWEST POSITION. ALARM ON. CALL LIGHT WITHIN REACH. WCTM. REPORT TO ONCOMING RN.
[2019-04-15 06:12] LABS: Albumin, Blood 1.7 g/dL (3.4-5.0); Anion Gap 11 mmol/L (6-16); Blood Urea Nitrogen 78 mg/dL (8-24); Bun/Creatinine Ratio 40.2 (12.0-20.0); CO2, Blood 18 mmol/L (21-32); Calcium, Blood 7.7 mg/dL (8.5-10.1); Chloride, Blood 113 mmol/L (98-108); Creatinine, Blood 1.94 mg/dL (0.40-1.00); Glomerular Filtration Rate 28 (60-); Glucose, Blood 224 mg/dL (70-99); Phosphorus, Blood 3.1 mg/dL (2.5-4.9); Potassium, Blood 4.2 mmol/L (3.5-5.5); Sodium, Blood 142 mmol/L (136-145)
--- NOTE | 2019-04-15 18:20 | NUR ---
SHIFT SUMMARY PATIENT LETHARGIC, SLEEPING THROUGHOUT THE SHIFT. PO VANCO HELD X1 AND MEALS HELD THIS SHIFT DUE TO PATIENT BEING LETHARGIC AND AN ASPIRATION RISK. PATIENT WAS MORE AWAKE AT THE END OF SHIFT. WAS ABLE TO SWALLOW 1800 VANCO. AT THE BEDSIDE. FLUIDS RUNNING THROUGH POWERGLIDE TO LEFT UPPER ARM WITHOUT DIFFICULTY. BUSTOS PATENT AND DRAINING DARK YELLOW URINE. RN WILL GIVE REPORT TO ONCOMING RN.
[2019-04-16 06:18] LABS: Albumin, Blood 1.7 g/dL (3.4-5.0); Anion Gap 9 mmol/L (6-16); Blood Urea Nitrogen 75 mg/dL (8-24); Bun/Creatinine Ratio 58.6 (12.0-20.0); CO2, Blood 17 mmol/L (21-32); Calcium, Blood 8.1 mg/dL (8.5-10.1); Chloride, Blood 120 mmol/L (98-108); Creatinine, Blood 1.28 mg/dL (0.40-1.00); Glomerular Filtration Rate 45 (60-); Glucose, Blood 236 mg/dL (70-99); Phosphorus, Blood 2.9 mg/dL (2.5-4.9); Potassium, Blood 4.2 mmol/L (3.5-5.5); Sodium, Blood 146 mmol/L (136-145)
--- NOTE | 2019-04-16 06:33 | NUR ---
SHIFT SUMMARY RESPONDS TO VERBAL STIMULI. EVERY ONCE IN A WHILE PATIENT WILL RESPOND TO SIMPLE QUESTIONS WITH ONE WORD ANSWERS. NO ACUTE CHANGES OVERNIGHT. REPOSITIONED FREQUENTLY. CONTINUES TO HAVE LOOSE STOOL. STARTING TO TAKE SIPS OF HONEY THICK LIQUIDS AND PO VANCO; TOLERATING WELL. BECOMING VERY STIFF TO BLE AND LUE. REMAINS EDEMATOUS T/O. APPEARED TO REST OFF AND ON THROUGHOUT NIGHT. BED IN LOWEST POSITION. ALARM ON. CALL LIGHT WITHIN REACH. WCTM. REPORT TO ONCOMING RN.
[2019-04-16 12:20] LABS: Hematocrit 43.5 % (33.0-51.0); Hemoglobin 13.7 g/dL (11.5-16.0); Mean Corpuscular HGB 29.4 pg (26.0-34.0); Mean Corpuscular HGB Conc 31.5 g/dL (31.5-36.5); Mean Platelet Volume 10.5 fL (9.1-12.4); NRBC ABSOLUTE 0.04 K/mm3 (0.00-0.02); NRBC Auto 0.1 /100 WBC (0.0-0.2); Platelet Count 432 K/mm3 (150-400); RDW Standard Deviation 52.5 fL (35.1-46.3); Red Blood Cell Count 4.66 M/mm3 (3.80-5.20); White Blood Cell Count 32.03 K/mm3 (4.00-11.30)
[2019-04-16 12:26] LABS: Mean Corpuscular Volume 93 fL (80-100)
[2019-04-16 12:39] LABS: BAND PERCENT MAN 9 % (0-8); BASOPHILS PERCENT MAN 0 % (0-2); EOSINOPHILS PERCENT MAN 0 % (0-6); LYMPHOCYTES PERCENT MAN 5 % (21-46); METAMYELOCYTE ABSOLUTE MAN 0.32 K/mm3 (0.00-0.00); METAMYELOCYTE PERCENT MAN 1 % (0-0); MONOCYTES ABSOLUTE MAN 0.64 K/mm3 (0.16-1.47); MONOCYTES PERCENT MAN 2 % (4-13); MYELOCYTE ABSOLUTE MAN 0.32 K/mm3 (0.00-0.00); MYELOCYTE PERCENT MAN 1 % (0-0); NEUTROPHILS ABSOLUTE MAN 29.14 K/mm3 (1.96-9.15); SEG NEUTROPHILS PERCENT MAN 82 % (41-73); TOTAL CELLS COUNTED 100
--- NOTE | 2019-04-16 17:44 | NUR ---
SHIFT SUMMARY PT IS ALERT AND ORIENTED BUT CONFUSED AT TIMES. SHE IS SLOW TO RESPOND AND SLOW WITH MOVING. SHE IS A STAND BY ASSIST TO THE COMMODE. SHE CAN BE UNSTEADY ON HER FEET WHEN MOVING. SHE IS EATING AND DRINKING WELL. SHE HAS HAD DIARRHEA MULTIPLE TIMES THIS SHIFT. SHE HAS BEEN COOPERATIVE WITH CARE THROUGHOUT THE DAY.
[2019-04-16 17:47] LABS: Albumin, Blood 1.7 g/dL (3.4-5.0); Anion Gap 10 mmol/L (6-16); Blood Urea Nitrogen 69 mg/dL (8-24); Bun/Creatinine Ratio 62.2 (12.0-20.0); CO2, Blood 17 mmol/L (21-32); Calcium, Blood 8.1 mg/dL (8.5-10.1); Chloride, Blood 121 mmol/L (98-108); Creatinine, Blood 1.11 mg/dL (0.40-1.00); Glomerular Filtration Rate 54 (60-); Glucose, Blood 340 mg/dL (70-99); Phosphorus, Blood 2.3 mg/dL (2.5-4.9); Potassium, Blood 4.3 mmol/L (3.5-5.5); Sodium, Blood 148 mmol/L (136-145)
--- NOTE | 2019-04-16 17:51 | NUR ---
SHIFT SUMMARY PT HAS BEEN NONVERBAL THROUGHOUT THE DAY. SHE APPEARED FLUSHED A FAN WAS PLACED ON HER AND HER COLOR WENT BACK TO NORMAL. SHE HAS HAD ELEVATED RESPIRATIONS THIS SHIFT. HER HAS BEEN IN THE ROOM HELPING WITH CARE THROUGHOUT THE DAY. PLAN IS TO D/C ON HOSPICE TOMORROW.
--- NOTE | 2019-04-17 04:50 | NUR ---
SHIFT SUMMARY RESPONDS TO VERBAL STIMULI. NON-VERBAL TONIGHT. APPEARED VERY SLEEPY. DID APPEAR TO REST MUCH OF SHIFT. NO ACUTE CHANGES OVERNIGHT. NO EPISODES OF INCONTINENT BOWEL. BUSTOS REMAINS IN PLACE; SECURED AND DRAINING TO GRAVITY. TOLERATES PO VANCO WELL. ALL EXTREMITIES STIFFENED. REMAINS EDEMATOUS THROUHGOUT. BED IN LOWEST POSITION. ALARM ON. CALL LIGHT WITHIN REACH. WCTM. REPORT TO ONCOMING RN.
[2019-04-17 07:01] LABS: Hematocrit 42.5 % (33.0-51.0); Hemoglobin 13.2 g/dL (11.5-16.0); Mean Corpuscular HGB 29.1 pg (26.0-34.0); Mean Corpuscular HGB Conc 31.1 g/dL (31.5-36.5); Mean Corpuscular Volume 94 fL (80-100); Mean Platelet Volume 10.2 fL (9.1-12.4); NRBC ABSOLUTE 0.05 K/mm3 (0.00-0.02); NRBC Auto 0.2 /100 WBC (0.0-0.2); Platelet Count 364 K/mm3 (150-400); RDW Standard Deviation 52.6 fL (35.1-46.3); Red Blood Cell Count 4.53 M/mm3 (3.80-5.20); White Blood Cell Count 22.53 K/mm3 (4.00-11.30)
[2019-04-17 07:07] LABS: Albumin, Blood 1.8 g/dL (3.4-5.0); Anion Gap 8 mmol/L (6-16); Blood Urea Nitrogen 65 mg/dL (8-24); Bun/Creatinine Ratio 57.5 (12.0-20.0); CO2, Blood 20 mmol/L (21-32); Calcium, Blood 8.5 mg/dL (8.5-10.1); Chloride, Blood 122 mmol/L (98-108); Creatinine, Blood 1.13 mg/dL (0.40-1.00); Glomerular Filtration Rate 52 (60-); Glucose, Blood 233 mg/dL (70-99); Phosphorus, Blood 2.8 mg/dL (2.5-4.9); Potassium, Blood 4.2 mmol/L (3.5-5.5); Sodium, Blood 150 mmol/L (136-145)
[2019-04-17 07:35] LABS: BAND PERCENT MAN 4 % (0-8); BASOPHILS PERCENT MAN 0 % (0-2); EOSINOPHILS PERCENT MAN 0 % (0-6); LYMPHOCYTES ABSOLUTE MAN 0.67 K/mm3 (0.84-5.20); LYMPHOCYTES PERCENT MAN 3 % (21-46); METAMYELOCYTE PERCENT MAN 4 % (0-0); MONOCYTES ABSOLUTE MAN 1.12 K/mm3 (0.16-1.47); MONOCYTES PERCENT MAN 5 % (4-13); MYELOCYTE PERCENT MAN 4 % (0-0); NEUTROPHILS ABSOLUTE MAN 18.92 K/mm3 (1.96-9.15); SEG NEUTROPHILS PERCENT MAN 80 % (41-73); TOTAL CELLS COUNTED 100
--- NOTE | 2019-04-17 09:47 | NUR ---
D/C UDPATE: DR. NEWTON IN TO SPEAK WITH CAIO. DR. NEWTON ASKS CAIO IF HE WOULD PREFER TO D/C ON HOSPICE TODAY PLANNED AT 1000 OR TO WAIT UNTIL FRIDAY. CAIO STATES HE WANTS TO DO WHAT DR. NEWTON ADVISES. DR. NEWTON ADVISES HIM TO WAIT UNTIL FRIDAY. D/C HELD UNTIL FRIDAY. CALLED [facility] TO CANCEL TRANSPORTATION. SPOKE WITH [facility] RN BLADE AND NOTIFIED HIM OF THE PLANNED D/C ON FRIDAY.
--- NOTE | 2019-04-17 18:23 | NUR ---
SHIFT SUMMARY PT RESPONDS TO VERBAL STIMULI BUT IS NON-VERBAL. PT'S SPOUSE STATES HE THINKS THE PATIENT IS UPSET THAT SHE CANNOT GO HOME YET AND THEREFORE IS NOT COOPERATIVE SHE WAS THIS MORNING. PT INCONTINENT OF BOWEL X1 THIS SHIFT. BUSTOS PATENT AND DRAINING 1450 ML OF CLEAR URINE. EXTRIMITIES CONTINUE TO BE STIFF AND BLE EDEMATOUS. BED IN LOW POSITION, CALL LIGHT WITHIN REACH, BED ALARM ON. VSS THOUGH PULSE ELEVATED.
--- NOTE | 2019-04-18 05:15 | NUR ---
SHIFT SUMMARY: pT UNRESPONSIVE TO CARES. pT JUST STARES with a blank look. Pt had two liquid stools and was cleaned up Very difficult to turn. Labs drawn. Unable to draw from picc but still able to give meds Pt on enteric precautions. Unable to push fluids- pt will not take.
[2019-04-18 07:30] LABS: Hematocrit 44.4 % (33.0-51.0); Hemoglobin 14.1 g/dL (11.5-16.0); Mean Corpuscular HGB 28.7 pg (26.0-34.0); Mean Corpuscular HGB Conc 31.8 g/dL (31.5-36.5); NRBC ABSOLUTE 0.04 K/mm3 (0.00-0.02); NRBC Auto 0.2 /100 WBC (0.0-0.2); RDW Coefficient Variation 15.1 % (11.7-14.2); RDW Standard Deviation 49.8 fL (35.1-46.3); Red Blood Cell Count 4.92 M/mm3 (3.80-5.20); White Blood Cell Count 17.93 K/mm3 (4.00-11.30)
[2019-04-18 07:45] LABS: Albumin, Blood 1.8 g/dL (3.4-5.0); Anion Gap 10 mmol/L (6-16); Blood Urea Nitrogen 60 mg/dL (8-24); Bun/Creatinine Ratio 59.4 (12.0-20.0); CO2, Blood 17 mmol/L (21-32); Calcium, Blood 8.2 mg/dL (8.5-10.1); Chloride, Blood 120 mmol/L (98-108); Creatinine, Blood 1.01 mg/dL (0.40-1.00); Glomerular Filtration Rate 60 (60-); Glucose, Blood 285 mg/dL (70-99); Phosphorus, Blood 3.4 mg/dL (2.5-4.9); Potassium, Blood 4.1 mmol/L (3.5-5.5); Sodium, Blood 147 mmol/L (136-145)
[2019-04-18 07:46] LABS: BAND PERCENT MAN 4 % (0-8); BASOPHILS PERCENT MAN 0 % (0-2); EOSINOPHILS PERCENT MAN 0 % (0-6); LYMPHOCYTES % ATYPICAL MANUAL 2 % (0-0); LYMPHOCYTES PERCENT MAN 5 % (21-46); METAMYELOCYTE PERCENT MAN 1 % (0-0); MONOCYTES PERCENT MAN 4 % (4-13); MYELOCYTE PERCENT MAN 3 % (0-0); TOTAL CELLS COUNTED 200
[2019-04-18 07:47] LABS: SEG NEUTROPHILS PERCENT MAN 83 % (41-73)
[2019-04-18 07:56] LABS: EOSINOPHILS ABSOLUTE AUTO 0.05 K/mm3 (0.00-0.68); EOSINOPHILS PERCENT AUTO 0 % (0-6); IMMATURE GRAN ABSOLUTE AUTO 2.18 K/mm3 (0.00-0.10); IMMATURE GRAN PERCENT AUTO 12 % (0-1); Mean Corpuscular Volume 90 fL (80-100); Mean Platelet Volume 10.4 fL (9.1-12.4); NEUTROPHILS ABSOLUTE AUTO 13.01 K/mm3 (1.96-9.15); NEUTROPHILS PERCENT AUTO 73 % (41-73); Platelet Count 308 K/mm3 (150-400)
--- NOTE | 2019-04-18 18:40 | NUR ---
SHIFT SUMMARY NO CHANGES THIS SHIFT. VSS. D5 INFUSING PER EMAR. THERAPEUTIC COMMUNICATION AND ACTIVE LISTENING WHEN DISCUSSING PT WITH SPOUSE. PT ABSENT OF INDICATORS OF PAIN. BED IN LOW POSITION, CALL LIGHT WITHIN REACH. SPOUSE PRESENT FOR MOST OF THE DAY ASSISTING WITH CARE.
[2019-04-19 06:01] LABS: Albumin, Blood 1.8 g/dL (3.4-5.0); Anion Gap 8 mmol/L (6-16); Blood Urea Nitrogen 54 mg/dL (8-24); Bun/Creatinine Ratio 56.8 (12.0-20.0); CO2, Blood 19 mmol/L (21-32); Chloride, Blood 115 mmol/L (98-108); Creatinine, Blood 0.95 mg/dL (0.40-1.00); Glomerular Filtration Rate >60 (60-); Glucose, Blood 327 mg/dL (70-99); Phosphorus, Blood 3.5 mg/dL (2.5-4.9); Potassium, Blood 4.4 mmol/L (3.5-5.5); Sodium, Blood 142 mmol/L (136-145)
--- NOTE | 2019-04-19 06:06 | NUR ---
Pt remains nonverbal and unresponsive to cares. Pt will ocasionally open her eyes and stare. Pt had one incontinent episode of liquid stool during the night and was cleaned up. pt repositoned q 2-3 hours during the night. Pt very stiff and heavy to move. Power picc will not draw blood and lab after three different people tried , they were unable to draw blood for labs. Pt very difficult stick.
--- NOTE | 2019-04-19 18:21 | NUR ---
NO ACUTE CHANGES NOTED, PT MOSTLY NON RESPONSIVE, NO VOLUNTARY MOVEMENT, PT DID WAKE SOMEWHAT IN THE MIDDLE OF THE DAY AND ATE A SMALL AMOUNT OF LUNCH WHICH HER SPOUSE CAIO FED TO HER. PT IS TO BE DISCHARGED HOME WITH HOSPICE TOMORROW PER HER . WILL CONTINUE TO MONITOR AND REPORT TO ONCMISHA TURNER
--- NOTE | 2019-04-20 04:49 | NUR ---
Shift summary. Blood presure low at beginning of shift. BP on right arm was 74/33. MD notified and 500 cc bolus was given. BP after bolus was 85/44. Could not feel a pulse on right arm. MD called again. MD ordered another bolus. PT DNR. Pt did not look good. Pt's was called. Was told by that she has much better pressures on left arm. Left arm was not being used because of her power picc line. When BP was taken on forearm with small cuff her pressure was 152/70 after getting second bolus. Pt looked much better after came in. BP this am is 182/96 and her states that that is her norm. Pt had two liquid bowel movements this am. Pt is anticipating taking her home on hospice today.
--- NOTE | 2019-04-20 05:17 | NUR ---
Pt refused labs this am.
--- NOTE | 2019-04-20 05:23 | NUR ---
Pt has 3 large liquid stools in the last four hours that smells like c-diff
--- NOTE | 2019-04-20 18:22 | NUR ---
NO ACUTE CHANGES NOTED THIS SHIFT, PT SPOUSE ANTICIPATES DISCHARGE HOME IN THE AM WITH A SAME DAY HOSPICE ADMIT. WILL CONTINUE TO MONITOR AND REPORT TO ONCOMING RN
--- NOTE | 2019-04-20 18:26 | NUR ---
Initial spiritual Care visit: Lengthy conversation wit spouse, Uday. He was quite talkative about his despair and heartbreak at losing Kari. He has many lutheran/spiritual theories and tells me that Kari "is like an geoffrey who saved my life." He told me many stories of Kari's mysticism and ability to forgive. Uday was tearful bu appropriate. Kari's brother, Lucius, lives with them and is an enourmous help and stabilizing force for Uday. Kari was in and out of sleep. When awake, I spoke to her and provided prayer. assured her og God's love and devotion. Golden appeared to feel comfortable with me and we had an easy rapport. He responded well to theraputic listening, affirmation and prayer. I will remain available.
--- NOTE | 2019-04-21 03:11 | NUR ---
Shift summary: Pt has maintained her blood pressure all night with a strong pulse. Pt has had no bowel movements so far this shift. Pt has been unresponsive but does open her eyes occasionally. No significant changes noted. Pt to hospice at home with in am.
[2019-04-21] MEDS ORDERED: ALBU2.5V5 NEB (08:53)
[2019-04-21] MEDS ORDERED: VISBIOME 112.51 EACH PO (08:54)
[2019-04-21] MEDS ORDERED: Nystatin15 GM TOP (08:55)
[2019-04-21] MEDS ORDERED: LORA2L PO (09:45)
[2019-04-21] MEDS ORDERED: MORP20L PO (09:47)
--- NOTE | 2019-04-21 10:21 | NUR ---
SHIFT SUMMARY/DC PT HAS BEEN NONVERBAL FOR THE MOST PART SHE DID SAY SOMETHING WHILE WE WERE CHANGING HER BUT I COULD NOT UNDERSTAND HER AND SHE DID NOT REPEAT IT. HER CAME IN THIS MORNING AND HELPS WITH CARE. SHE IS DC TODAY ON HOSPICE AND AWAITING TRANSPORT. PT WILL GO HOME WITH HER CATHETER.
--- NOTE | 2019-04-21 11:04 | NUR ---
DISCHARGE TRANSPORTATION BEING SET UP BY INFORMATION ANALYST
--- NOTE | 2019-04-21 11:58 | NUR ---
DISCHARGE PT TAKEN OUT BY DENIA
== END 2019-04-21 11:49 | disposition hospice, home (50) | DRG 871 ==
LOC: ER 22:06 → MEDS 04-12 00:23 → PCU 04-12 00:23 → MEDS 04-12 01:24 → PCU 04-12 01:40 → MEDS 04-12 13:29 → ENPENDDIS 04-21 09:30 → MEDS 04-21 11:49
PROVIDERS: Emergency Medicine; Internal Medicine; ADMIT Hospitalist
PROC: 5A09357 Assistance with Respiratory Ventilation, Less than 24 Consecutive Hours, Continuous Positive Airway Pressure (ICD-10-PCS; principal; 2019-04-16)
DX: A41.9 Sepsis, unspecified organism (principal); G92 Toxic encephalopathy; A04.71 Enterocolitis due to Clostridium difficile, recurrent; E87.1 Hypo-osmolality and hyponatremia; E44.0 Moderate protein-calorie malnutrition; E87.0 Hyperosmolality and hypernatremia; E87.2 Acidosis; N17.9 Acute kidney failure, unspecified; R65.20 Severe sepsis without septic shock; G31.89 Other specified degenerative diseases of nervous system; G47.00 Insomnia, unspecified; I10 Essential (primary) hypertension; Z68.35 Body mass index [BMI] 35.0-35.9, adult; E66.01 Morbid (severe) obesity due to excess calories; Z66 Do not resuscitate; Z74.01 Bed confinement status; E87.6 Hypokalemia; E11.65 Type 2 diabetes mellitus with hyperglycemia; G20 Parkinson's disease; D47.3 Essential (hemorrhagic) thrombocythemia; E87.70 Fluid overload, unspecified; E87.5 Hyperkalemia; K59.00 Constipation, unspecified; E86.0 Dehydration; Z79.82 Long term (current) use of aspirin; Z79.84 Long term (current) use of oral hypoglycemic drugs
CPT/HCPCS: 36415; 36600; 51702; 70450; 74177; 80048; 80053; 80069; 81001; 82803; 82947; 83605; 83735; 83880; 84484; 85025; 87040; 87077; 87086; 87186; 87324; 87493; 93005; 93010; 94760; 96365-59; 96375-59; 99285-25; C1751; J0696; J1650; J1940; J2310; J3480; J7030; J7070; Q9967